=== PATIENT | female | born 1965 | race Caucasian/White ===

== ENCOUNTER 2017-11-12 00:32 | Emergency (ER) | payer BC, OTHER ==
[2017-11-12] MEDS ORDERED: LIDOCAINE 1% MPF 5 ML VIAL ONE (01:02)
--- NOTE | 2017-11-12 02:09 | ER ---
Nurse's Notes [facility] Name: Amber Jeff Age: 52 yrs Sex: Female : 1965 Arrival Date: 11/12/2017 Time: 00:36 Bed 19 Private MD: Vick Singh H Diagnosis: Laceration without foreign body, right foot Presentation: 11/12 00:58 Presenting complaint: Patient states: I dropped a bottle of vodka and I slipped and tl2 think I stepped on the bottom of the broken bottle. 10 cm laceration noted to bottom of right foot. Bleeding controlled with pressure. Transition of care: patient was not received from another setting of care. Complicating Factors: possible glass present. Onset of symptoms was November 12, 2017 at 00:00. Risk Assessment: Do you want to hurt yourself or someone else? Patient reports no desire to harm self or others. Initial Sepsis Screen: Does the patient meet any 2 criteria? No. Patient's initial sepsis screen is negative. Does the patient have a suspected source of infection? No. Patient's initial sepsis screen is negative. Care prior to arrival: None. 00:58 Method Of Arrival: Wheelchair tl2 00:58 Acuity: SHYANN 4 tl2 Triage Assessment: 01:02 General: Appears in no apparent distress. comfortable, Behavior is calm, cooperative, tl2 appropriate for age. Pain: Complains of pain in heel of right foot. Neuro: Level of Consciousness is awake, alert, obeys commands, Oriented to person, place, time, situation. Cardiovascular: Denies chest pain. Respiratory: Airway is patent Respiratory effort is even, unlabored, Respiratory pattern is regular, symmetrical. GI: No signs and/or symptoms were reported involving the gastrointestinal system. Injury Description: Laceration sustained to heel of right foot is jagged, 2.6 to 7.5 cm long, bleeding moderately, was sustained 1-2 hours ago. is bleeding moderately. 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 - Social history:: Smoking status: Patient uses tobacco products, smokes one pack cigarettes per day. - Ebola Screening: : No symptoms or risks identified at this time. Screenin:04 Abuse screen: Denies threats or abuse. Nutritional screening: No deficits noted. tl2 Tuberculosis screening: No symptoms or risk factors identified. Fall Risk Gait- Impaired (20 pts.). Assessment: 01:04 General: see triage assessment. tl2 01:04 Musculoskeletal: Circulation, motion, and sensation intact. Denies numbness in, right tl2 foot. Injury Description: Laceration sustained to heel of right foot is jagged, 2.6 to 7.5 cm long, bleeding moderately, was sustained 1-2 hours ago. is bleeding moderately. Vital Signs: 01:02 BP 152 / 85; Pulse 77; Resp 18; Temp 98.8(O); Pulse Ox 97% on R/A; Weight 68.04 kg; tl2 Height 5 ft. 2 in. (157.48 cm); Pain 7/10; 02:18 BP 132 / 88; Pulse 78; Resp 18; Pulse Ox 97% on R/A; tl2 01:02 Body Mass Index 27.44 (68.04 kg, 157.48 cm) tl2 ED Course: 00:36 Patient arrived in ED. es 00:38 Vick Singh DO is Private Physician. es 00:43 Chris Shepherd PA is PHCP. jr8 00:43 Shravan Potter MD is Attending Physician. jr8 01:00 Triage completed. tl2 01:02 Arm band placed on right wrist. tl2 01:04 Patient has correct armband on for positive identification. Bed in low position. Call tl2 light in reach. Side rails up X 1. 01:06 X-ray completed. Portable x-ray completed in exam room. Patient tolerated procedure kw well. 01:07 XRAY Foot RIGHT 3 View In Process Unspecified. EDMS 02:08 Vick Singh DO is Referral Physician. jr8 02:17 Pitt, Janine, RN is Primary Nurse. tl2 02:17 Assist provider with laceration repair on heel of right foot that was between 2.6 to tl2 7.5 cm using sutures. Set up tray. Performed by Chris PERDUE Dressed with Adaptic, Neosporin, Patient tolerated well. Patient did not have IV access during this emergency room visit. Administered Medications: 01:50 Drug: Lidocaine (1 %) 1 application Volume: 20 ml; Route: Infiltration; tl2 Outcome: 02:08 Discharge ordered by MD. newell 02:19 Discharged to home via wheelchair, with crutches, with family. tl2 02:19 Condition: stable 02:19 Discharge instructions given to patient, family, Instructed on discharge instructions, follow up and referral plans. medication usage, crutch walking, Demonstrated understanding of instructions, follow-up care, medications, wound care, crutch walking. 02:19 Patient left the ED. tl2 Signatures: Dispatcher [employer] EDLakeisha Grimaldo Kimberlee kw Roszak, Josh, PA PA jrJanine Angela, JAIRO RN tl2
--- NOTE | 2017-11-12 02:09 | EDPHYS ---
Physician Documentation [facility] Name: Amber Jeff Age: 52 yrs Sex: Female : 1965 Arrival Date: 11/12/2017 Time: 00:36 Bed 19 Private MD: Vick Singh H ED Physician Shravan Potter HPI: 11/12 02:03 This 52 yrs old Female presents to ER via Wheelchair with complaints of jr8 Laceration To Foot. 02:03 The patient has a laceration related to: falling occurred at home. The laceration(s) jr8 is(are) located on the heel of right foot. Onset: The symptoms/episode began/occurred acutely, today. Associated signs and symptoms: The patient has no apparent associated signs or symptoms. The patient has not experienced similar symptoms in the past. The patient has not recently seen a physician. Patient was walking and tripped causing vodka bottle to break. Stepped on bottle causing laceration to bottom of foot . 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 - Social history:: Smoking status: Patient uses tobacco products, smokes one pack cigarettes per day. - Ebola Screening: : No symptoms or risks identified at this time. ROS: 02:03 Eyes: Negative for injury, pain, redness, and discharge, ENT: Negative for injury, jr8 pain, and discharge, Neck: Negative for injury, pain, and swelling, Cardiovascular: Negative for chest pain, palpitations, and edema, Respiratory: Negative for shortness of breath, cough, wheezing, and pleuritic chest pain, Abdomen/GI: Negative for abdominal pain, nausea, vomiting, diarrhea, and constipation, Back: Negative for injury and pain, MS/Extremity: Negative for injury and deformity, Neuro: Negative for headache, weakness, numbness, tingling, and seizure. 02:03 Skin: Positive for laceration(s), of the heel of right foot. Exam: 02:03 Cardiovascular: Regular rate and rhythm with a normal S1 and S2. No gallops, murmurs, jr8 or rubs. Normal PMI, no JVD. No pulse deficits. Respiratory: Lungs have equal breath sounds bilaterally, clear to auscultation and percussion. No rales, rhonchi or wheezes noted. No increased work of breathing, no retractions or nasal flaring. MS/ Extremity: Pulses equal, no cyanosis. Neurovascular intact. Full, normal range of motion. Neuro: Awake and alert, GCS 15, oriented to person, place, time, and situation. Cranial nerves II-XII grossly intact. Motor strength 5/5 in all extremities. Sensory grossly intact. Cerebellar exam normal. Normal gait. 02:03 Skin: injury, laceration(s), the wound is approximately 5 cm(s), with a depth of 2 cm(s), of the heel of right foot, that can be described as no foreign body, jagged, with mild bleeding. Vital Signs: 01:02 BP 152 / 85; Pulse 77; Resp 18; Temp 98.8(O); Pulse Ox 97% on R/A; Weight 68.04 kg; tl2 Height 5 ft. 2 in. (157.48 cm); Pain 7/10; 02:18 BP 132 / 88; Pulse 78; Resp 18; Pulse Ox 97% on R/A; tl2 01:02 Body Mass Index 27.44 (68.04 kg, 157.48 cm) tl2 Laceration: 02:03 Wound Repair of 5cm ( 2.0in ) subcutaneous laceration to heel of right foot. jr8 Irregularly shaped.. Minimal bleeding noted.. Distal neuro/vascular/tendon intact. Anesthesia: Local anesthetic administered with 10 mls of 1% lidocaine. Wound prep: Extensive cleansing with betadine, Wound explored extensively. Skin closed with 10 3-0 Prolene using interrupted sutures and sterile technique. Patient tolerated well. MDM: 00:43 Patient medically screened. jr8 02:03 Data reviewed: vital signs, nurses notes, radiologic studies, plain films, and as a jr8 result, I will discharge patient. Data interpreted: Pulse oximetry: on room air is 97 %. Interpretation: normal. Counseling: I had a detailed discussion with the patient and/or guardian regarding: the historical points, exam findings, and any diagnostic results supporting the discharge/admit diagnosis, radiology results, the need for outpatient follow up, a family practitioner, to return to the emergency department if symptoms worsen or persist or if there are any questions or concerns that arise at home. ED course: Patient up to date on tetanus . 11/12 00:47 Order name: XRAY Foot RIGHT 3 View jr8 11/12 02:18 Order name: Prolene, Sutures; Complete Time: 02:18 tl2 11/12 02:18 Order name: Dressing - Wound; Complete Time: 02:18 tl2 11/12 02:18 Order name: Gloves, Sterile; Complete Time: 02:18 tl2 11/12 02:18 Order name: Setup Suture Tray; Complete Time: 02:18 tl2 Administered Medications: 01:50 Drug: Lidocaine (1 %) 1 application Volume: 20 ml; Route: Infiltration; tl2 Disposition: 07:23 Co-signature as Attending Physician, Shravan Potter MD I agree with the assessment and wa plan of care. Disposition: 11/12/17 02:08 Discharged to Home. Impression: Laceration without foreign body, right foot. - Condition is Stable. - Discharge Instructions: Laceration Care, Adult. - Prescriptions for Bactrim DS 800- 160 mg Oral Tablet - take 1 tablet by ORAL route every 12 hours for 7 days; 14 tablet. Ibuprofen 800 mg Oral Tablet - take 1 tablet by ORAL route every 12 hours As needed take with food; 20 tablet. - Medication Reconciliation Form, Thank You Letter, Antibiotic Education, Prescription Opioid Use form. - Follow up: Vick Singh DO; When: 10 - 14 days; Reason: Wound Recheck, Recheck today's complaints, Continuance of care, Staple/Suture removal, Re-evaluation by your physician. - Problem is new. - Symptoms have improved. Signatures: Dispatcher [employer] EDMS Chris Shepherd PA PA jr8 Janine Pitt RN RN tl2 Shravan Potter MD MD wa Corrections: (The following items were deleted from the chart) 02:19 02:08 11/12/2017 02:08 Discharged to Home. Impression: Laceration without foreign body, tl2 right foot. Condition is Stable. Forms are Medication Reconciliation Form, Thank You Letter, Antibiotic Education, Prescription Opioid Use. Follow up: Vick Singh; When: 10 - 14 days; Reason: Wound Recheck, Recheck today's complaints, Continuance of care, Staple/Suture removal, Re-evaluation by your physician. Problem is new. Symptoms have improved. jr8
--- NOTE | 2017-11-12 08:30 | RAD REPORT ---
EXAM DESCRIPTION: RAD - Foot Right 3 View - 11/12/2017 1:07 am CLINICAL HISTORY: Laceration COMPARISON: No comparisons FINDINGS: Soft tissue laceration is noted along the lateral inferior aspect of the foot. Tiny radiop aque structures are seen lying adjacent to the cuboid which could represent small foreign bodies. No fracture seen. Small calcaneal spur.
== END 2017-11-12 02:19 | disposition home or self-care (01) ==
LOC: ER 00:32
PROC: 0JQQ0ZZ Repair Right Foot Subcutaneous Tissue and Fascia, Open Approach (ICD-10-PCS; principal; 2017-11-12)
DX: S91.311A Laceration without foreign body, right foot, initial encounter (principal); W01.110A Fall on same level from slipping, tripping and stumbling with subsequent striking against sharp glass, initial encounter; Y93.01 Activity, walking, marching and hiking; Y92.009 Unspecified place in unspecified non-institutional (private) residence as the place of occurrence of the external cause; Z88.5 Allergy status to narcotic agent; Z91.040 Latex allergy status; E03.9 Hypothyroidism, unspecified; F32.9 Major depressive disorder, single episode, unspecified; F17.210 Nicotine dependence, cigarettes, uncomplicated
CPT/HCPCS: 99284